=== PATIENT | male | born 2000 | race African-American/Black ===

== ENCOUNTER 2024-06-11 13:14 | Emergency (ER) | payer OTHER ==
[~2024-06-11] VITALS: Ht 180.3 cm; Wt 59.0 kg
[2024-06-11 13:24] VITALS: O2SAT 98
[2024-06-11 14:33] LABS: BASOPHILS % 0.7 % (0.0-2.0); EOSINOPHILS % 2.9 % (0.0-5.0); HEMOGLOBIN. 14.6 g/dL (14.0-18.0); LYMPHOCYTES % 21.2 % (20.0-50.0); MEAN CORPUSCULAR HEMOGLOBIN 31.5 pg (28.0-32.0); MEAN CORPUSCULAR HGB CONC 33.1 g/dL (31.0-37.0); MEAN CORPUSCULAR VOLUME 95.2 fL (80.0-94.0); MEAN PLATELET VOLUME 9.2 fl (7.4-10.4); MONOCYTES % 7.9 % (2.0-8.0); NEUTROPHILS % 67.3 % (40.0-76.0); PLATELET 297 x1000/uL (130-400); RED BLOOD CELL COUNT 4.63 mill/uL (4.7-6.1); RED CELL DISTRIBUTION WIDTH 12.7 % (11.6-14.6); WHITE BLOOD COUNT 5.3 x1000/uL (4.5-11.0)
[2024-06-11 14:41] LABS: CHLORIDE 103 mEq/L (98-107); POTASSIUM 3.8 mEq/L (3.5-5.1); SODIUM 145 mEq/L (136-145)
[2024-06-11 14:42] LABS: CARBON DIOXIDE 29 mEq/L (21-32)
[2024-06-11 14:43] LABS: CALCIUM 9.3 mg/dL (8.7-10.4)
[2024-06-11 14:47] LABS: CREATININE 2.3 mg/dL (0.6-1.3)
[2024-06-11 14:48] LABS: GLUCOSE 170 mg/dL (70-105); UREA NITROGEN BLOOD 8 mg/dL (9-23)
[2024-06-11 14:57] LABS: HCG SCREEN NEGATIVE
[2024-06-11 15:02] LABS: TROPONIN I HIGH SENSITIVITY < 4 ng/L (3.0-53)
[2024-06-11 15:50] VITALS: BP 130/76; PULSE 82; RESP 14; TEMP 37; O2SAT 98
== END 2024-06-11 15:48 | disposition home or self-care (01) ==
LOC: ER 13:14
DX: S43.102A Unspecified dislocation of left acromioclavicular joint, initial encounter (principal); R55 Syncope and collapse; N17.9 Acute kidney failure, unspecified; X58.XXXA Exposure to other specified factors, initial encounter; Y93.89 Activity, other specified; Y92.89 Other specified places as the place of occurrence of the external cause; Y99.8 Other external cause status
CPT/HCPCS: 36415; 71045; 73030; 80048; 82962; 84484; 84703; 85025; 93005; 99285; L3670

== ENCOUNTER 2024-09-12 01:25 | Emergency (ER) | payer OTHER ==
[~2024-09-12] VITALS: Ht 180.3 cm; Wt 61.0 kg
[2024-09-12 01:30] VITALS: O2SAT 97
[2024-09-12 01:32] VITALS: BP 134/65; PULSE 78; RESP 18; TEMP 36.9; O2SAT 100
== END 2024-09-12 02:56 | disposition left against medical advice (07) ==
LOC: ER 01:25
DX: S01.81XA Laceration without foreign body of other part of head, initial encounter (principal); X58.XXXA Exposure to other specified factors, initial encounter; Y93.89 Activity, other specified; Y92.89 Other specified places as the place of occurrence of the external cause; Y99.8 Other external cause status
CPT/HCPCS: 99284